=== PATIENT | male | born 1945 | race Caucasian/White ===

== ENCOUNTER 2019-03-30 12:29 | Observation (INO) | payer OTHER ==
[~2019-03-30] VITALS: Ht 165.1 cm; Wt 75.1 kg
[2019-03-30] MEDS ORDERED: SODIUM CHLORIDE 0.9% 1L BAG IV* STA (12:34)
[2019-03-30] MEDS ORDERED: CARV25TA79 PO (14:02)
--- NOTE | 2019-03-30 14:02 | ERD ---
ER Documentation Chief Complaint Chief Complaint near syncope this morning; no trauma or fall. HPI 73-year-old male presents to the emergency department after syncopal episode. Patient arrives asymptomatic without significant symptoms. History is mostly available from the daughter. According to the daughter, on a regular basis, patient checks his blood pressure prior to taking his blood pressure medicine. Today, he did not check his blood pressure and took all of his blood pressure medications. Of note, he is on 3 different medications for his blood pressure. After taking his medications, he felt lightheaded and passed out. He reported no chest pain, palpitations, shortness of breath. I have reviewed the head cook pre-hospital care. Pre-hospital vital signs were reviewed. Pre-hospital diagnostic tests were reviewed. Upon arrival, patient has no acute complaints. He reports no headache, focal weakness or numbness. ROS All systems reviewed and are negative except as per history of present illness. PMhx/Soc Medical and Surgical Hx: pt denies Surgical Hx History of Surgery: No Anesthesia Reaction: No Hx Neurological Disorder: No Hx Respiratory Disorders: No Hx Cardiac Disorders: Yes (htn) Hx Psychiatric Problems: No Hx Miscellaneous Medical Probl: No Hx Alcohol Use: No Hx Substance Use: No Hx Tobacco Use: No Smoking Status: Never smoker Physical Exam Vitals Vital Signs Date Temp Pulse Resp B/P (MAP) Pulse Ox O2 O2 Flow FiO2 Time Delivery Rate 03/30/19 Nasal 2 13:09 Cannula 03/30/19 97.5 70 18 92/65 (74) 97 13:07 Physical Exam GENERAL: The patient is well developed and appropriate for usual state of health in no apparent distress HEENT: Pupils equal, round, and reactive to light. EOMI. There is no scleral icterus. NECK: C-spine is soft and supple, there is no meningismus. There is no cervical lymphadenopathy. LUNGS: Clear to auscultation bilaterally. There are no rales, wheezes or rhonchi. HEART: Regular rate and rhythm, no murmurs, clicks, rubs or gallops. ABDOMEN: Soft, non-tender, non-distended. There are bowel sounds in all four quadrants. No rebound or guarding. EXTREMITIES: There is no peripheral cyanosis or edema. No focal swelling or erythema. NEURO: The patient moves all four extremities with 5/5 strength. Cranial nerves II - XII are intact. Normal gait. Alert and oriented SKIN: There is no apparent rash or petechiae. HEME/LYMPHATIC: There is no evidence of excessive bruising or lymphedema. PSYCHIATRIC: The patient does not appear anxious or depressed. Result Diagram: 03/30/19 1247 03/30/19 1247 Results 24 hrs Laboratory Tests Test 03/30/19 12:47 White Blood Count 9.7 10^3/ul Red Blood Count 5.38 10^6/ul Hemoglobin 16.2 g/dl Hematocrit 47.9 % Mean Corpuscular Volume 89.0 fl Mean Corpuscular Hemoglobin 30.1 pg Mean Corpuscular Hemoglobin Concent 33.8 g/dl Red Cell Distribution Width 12.2 % Platelet Count 193 10^3/UL Mean Platelet Volume 11.2 fl Immature Granulocytes % 0.300 % Neutrophils % 68.6 % Lymphocytes % 21.8 % Monocytes % 7.5 % Eosinophils % 1.6 % Basophils % 0.2 % Nucleated Red Blood Cells % 0.0 /100WBC Immature Granulocytes # 0.030 10^3/ul Neutrophils # 6.6 10^3/ul Lymphocytes # 2.1 10^3/ul Monocytes # 0.7 10^3/ul Eosinophils # 0.2 10^3/ul Basophils # 0.0 10^3/ul Nucleated Red Blood Cells # 0.0 10^3/ul Sodium Level 139 mmol/L Potassium Level 4.5 mmol/L Chloride Level 108 mmol/L Carbon Dioxide Level 23 mmol/L Anion Gap 8 Blood Urea Nitrogen 19 mg/dl Creatinine 1.38 mg/dl Est Glomerular Filtrat Rate mL/min mL/min Glucose Level 231 mg/dl POC Venous Lactate 1.6 mmol/L Calcium Level 8.5 mg/dl Total Bilirubin 0.3 mg/dl Direct Bilirubin 0.00 mg/dl Indirect Bilirubin 0.3 mg/dl Aspartate Amino Transf (AST/SGOT) 21 IU/L Alanine Aminotransferase (ALT/SGPT) 30 IU/L Alkaline Phosphatase 88 IU/L Troponin I < 0.012 ng/ml Total Protein 6.6 g/dl Albumin 3.6 g/dl Globulin 3.00 g/dl Albumin/Globulin Ratio 1.20 Current Medications Medications Dose Sig/Jose F Start Time Status Last (Trade) Ordered Route PRN Stop Time Admin Dose Reason Admin Sodium 2,100 ml BOLUS OVER 2 03/30/19 DC Chloride HOURS STAT 12:34 (NS) IV* 03/30/19 12:35 Procedures/MDM Patient was taken to a room, seen and evaluated. Comfort measures were initiat ed. Diagnostic tests were ordered and reviewed. 3 LEAD RHYTHM STRIP: Normal sinus rhythm without ectopy EKG obtained from the paramedics: 12 lead EKG reviewed by myself: Normal Sinus Rhythm Normal A[place] and intervals No ST elevation, depression, or T wave inversion Impression: Normal EKG Twelve-lead EKG interpreted by myself obtained upon arrival: Rate/rhythm: Normal sinus rhythm no ectopy Axton/intervals: Normal Ischemia: No ST elevation, ST depression, T wave inversion Impression: Nonischemic EKG RADIOLOGY: Reviewed with the radiologist CONSULTATION: Dr. Merida was notified for admission REEVALUATION: 1400 Diagnostic tests were appreciated. Arrangements were made for admission for observation MEDICAL DECISION MAKIN-year-old male presents the emergency department after syncopal episode. The cause of his syncope seems to be related to his high blood pressure medications. With supportive care and normal saline, his blood pressure seems to be responding but he will require prolonged observation given the medications causing the hypotension. At this time patient shows no evidence of other significant ischemia, anemia or other high-risk causes of syncope. He will be admitted for observation at this time. Departure Diagnosis: Primary Impression: Syncope Additional Impression: Adverse drug event Condition: MARIZOL Rascon March 30, 2019 14:02
[2019-03-30] MEDS ORDERED: ASPI-817 PO (14:03)
[2019-03-30] MEDS ORDERED: BENA40TA56 PO (14:03)
[2019-03-30] MEDS ORDERED: HYDR-3672 PO (14:03)
[2019-03-30] MEDS ORDERED: ACETAMINOPHEN 325 MG TAB PO PRN (14:30)
[2019-03-30] MEDS ORDERED: ZOLPIDEM 5 MG TAB PO PRN (14:30)
--- NOTE | 2019-03-30 15:34 | HP ---
DATE OF ADMISSION: 03/30/2019 CHIEF COMPLAINT: Near syncope. HISTORY OF PRESENT ILLNESS: A 73-year-old male with history of hypertension, presented to the ER fol lowing a near-syncopal episode. The patient is on multiple antihypertensives. He took all of his me dications and experienced severe lightheadedness. The patient denies jim syncope. He denies any c hest pain. No focal weakness or numbness. Initial evaluation in the Emergency Room revealed systoli c blood pressure in the 90s. Patient received IV fluids with appropriate response. PAST MEDICAL HISTORY: Hypertension. MEDICATIONS: Prior to admission: 1. Lisinopril. 2. Colace. 3. Hydralazine. 4. Aspirin. SOCIAL HISTORY: Patient lives at home. PHYSICAL EXAMINATION: GENERAL: Well-developed, well-nourished male who is in no apparent distress. VITAL SIGNS: Stable, afebrile. HEENT: Extraocular muscles intact. Pupils equal and reactive to light bilaterally. Sclera anicteri c. Oropharynx clear and moist. Neck: Supple, no JVD, no carotid bruits. LUNGS: Clear to auscultation bilaterally. CARDIAC: Regular rate and rhythm. No murmurs or gallops. ABDOMEN: Soft, nontender, nondistended. Normoactive bowel sounds. EXTREMITIES: No clubbing, cyanosis or edema. NEUROLOGIC: Cranial nerves 2-12 are intact. Motor and sensory are intact. Coordination normal. ASSESSMENT: A 73-year-old male with: 1. Near syncope due to hypotension. 2. Hypotension due to multiple antihypertensives. PLAN: 1. Place in tele observation. 2. Fluid hydration. 3. Hold all antihypertensives. Dictated By: ELAYNE ECHOLS/MANUEL Conf#: [id number] DID#: [id number]
[2019-03-30 20:42] VITALS: PULSE 76
[2019-03-30 20:45] VITALS: BP 156/84; PULSE 73; RESP 18
[2019-03-30 21:20] VITALS: Ht 165.1 cm; Wt 75.1 kg
[2019-03-30] MEDS: SOD CHLORIDE 0.9% 1,000 ML IV SCH (22:42)
[2019-03-31] VITALS (7 sets, daily range): BP systolic 109–159; BP diastolic 56–87; PULSE 76–90; RESP 17–18
[2019-03-31] MEDS: SOD CHLORIDE 0.9% 1,000 ML IV SCH (03:50)
[2019-03-31] MEDS ORDERED: BENAZEPRIL 40 MG TAB PO SCH (09:00)
[2019-03-31] MEDS ORDERED: ASPIRIN (EC) 81 MG TAB PO SCH (09:00)
--- NOTE | 2019-03-31 11:30 | PN ---
Date/Time of Note Date/Time of Note DATE: 03/31/19 TIME: 11:28 Assessment/Plan VTE Prophylaxis Risk score (from Ns)>0 risk: 2 [place] [facility] [place] contraindicated: low risk/ambulating Pharmacological prophylaxis: LMWH Lines/Catheters IV [facility]from [facility] Saline Lock Assessment/Plan Assessment/Plan 1. near syncope/syncope related to medication induced hypotension, bp meds restarted last night vitals now stable, increase activity,plan d/c home Result Diagram: 03/31/19 0505 03/31/19 0505 Results 24hrs Laboratory Tests Test 03/30/19 12:47 03/30/19 17:00 03/30/19 19:48 03/31/19 05:05 White Blood Count 9.7 8.7 Red Blood Count 5.38 4.96 Hemoglobin 16.2 14.9 Hematocrit 47.9 44.2 Mean Corpuscular 89.0 89.1 Volume Mean Corpuscular 30.1 30.0 Hemoglobin Mean Corpuscular 33.8 33.7 Hemoglobin Concen t Red Cell 12.2 12.4 Distribution Width Platelet Count 193 160 Mean Platelet 11.2 H 11.4 H Volume Immature 0.300 0.200 Granulocytes % Neutrophils % 68.6 64.5 Lymphocytes % 21.8 26.4 Monocytes % 7.5 6.2 Eosinophils % 1.6 2.2 Basophils % 0.2 0.5 Nucleated Red 0.0 0.0 Blood Cells % Immature 0.030 0.020 Granulocytes # Neutrophils # 6.6 5.6 Lymphocytes # 2.1 2.3 Monocytes # 0.7 0.5 Eosinophils # 0.2 0.2 Basophils # 0.0 0.0 Nucleated Red 0.0 0.0 Blood Cells # Sodium Level 139 143 Potassium Level 4.5 4.1 Chloride Level 108 111 H Carbon Dioxide 23 24 Level Anion Gap 8 8 Blood Urea 19 15 Nitrogen Creatinine 1.38 H 0.93 Est Glomerular Filtrat Rate mL/min Glucose Level 231 H 96 # POC Venous 1.6 Lactate Calcium Level 8.5 8.4 Total Bilirubin 0.3 Direct Bilirubin 0.00 Indirect 0.3 Bilirubin Aspartate Amino 21 Transf (AST/SGOT) Alanine 30 Aminotransferase (ALT/SGPT) Alkaline 88 Phosphatase Troponin I < 0.012 Total Protein 6.6 Albumin 3.6 Globulin 3.00 Albumin/Globulin 1.20 Ratio Lactic Acid Level 1.2 Urine Color YELLOW Urine Clarity SLIGHTLY CLOUDY A Urine pH 5.0 Urine Specific 1.014 [place] Urine Ketones NEGATIVE Urine Nitrite NEGATIVE Urine Bilirubin NEGATIVE Urine NEGATIVE Urobilinogen Urine Leukocyte NEGATIVE Esterase Urine Microscopic 0 RBC Urine Microscopic 1 WBC Urine Hemoglobin NEGATIVE Urine Glucose NEGATIVE Urine Total NEGATIVE Protein Subjective 24 Hr Interval Summary Free Text/Dictation no complaints eating ok ambulatng to toilet feels better Exam/Review of Systems Exam Vitals Vital Signs Date Temp Pulse Resp B/P (MAP) Pulse Ox O2 O2 Flow FiO2 Time Delivery Rate 03/31/19 90 08:00 03/31/19 97.9 18 159/87 95 07:23 (111) 03/31/19 Room Air 03:39 03/30/19 2 13:09 Intake and Output 03/30/19 03/30/19 03/31/19 1515:00 23:00 07:00 IntakeIntake Total 350 ml OutputOutput Total 250 ml BalanceBalance 100 ml Exam nad, ctab, rrr Results Results 24hrs Laboratory Tests Test 03/30/19 12:47 03/30/19 17:00 03/30/19 19:48 03/31/19 05:05 White Blood Count 9.7 8.7 Red Blood Count 5.38 4.96 Hemoglobin 16.2 14.9 Hematocrit 47.9 44.2 Mean Corpuscular 89.0 89.1 Volume Mean Corpuscular 30.1 30.0 Hemoglobin Mean Corpuscular 33.8 33.7 Hemoglobin Concen t Red Cell 12.2 12.4 Distribution Width Platelet Count 193 160 Mean Platelet 11.2 H 11.4 H Volume Immature 0.300 0.200 Granulocytes % Neutrophils % 68.6 64.5 Lymphocytes % 21.8 26.4 Monocytes % 7.5 6.2 Eosinophils % 1.6 2.2 Basophils % 0.2 0.5 Nucleated Red 0.0 0.0 Blood Cells % Immature 0.030 0.020 Granulocytes # Neutrophils # 6.6 5.6 Lymphocytes # 2.1 2.3 Monocytes # 0.7 0.5 Eosinophils # 0.2 0.2 Basophils # 0.0 0.0 Nucleated Red 0.0 0.0 Blood Cells # Sodium Level 139 143 Potassium Level 4.5 4.1 Chloride Level 108 111 H Carbon Dioxide 23 24 Level Anion Gap 8 8 Blood Urea 19 15 Nitrogen Creatinine 1.38 H 0.93 Est Glomerular Filtrat Rate mL/min Glucose Level 231 H 96 # POC Venous 1.6 Lactate Calcium Level 8.5 8.4 Total Bilirubin 0.3 Direct Bilirubin 0.00 Indirect 0.3 Bilirubin Aspartate Amino 21 Transf (AST/SGOT) Alanine 30 Aminotransferase (ALT/SGPT) Alkaline 88 Phosphatase Troponin I < 0.012 Total Protein 6.6 Albumin 3.6 Globulin 3.00 Albumin/Globulin 1.20 Ratio Lactic Acid Level 1.2 Urine Color YELLOW Urine Clarity SLIGHTLY CLOUDY A Urine pH 5.0 Urine Specific 1.014 [place] Urine Ketones NEGATIVE Urine Nitrite NEGATIVE Urine Bilirubin NEGATIVE Urine NEGATIVE Urobilinogen Urine Leukocyte NEGATIVE Esterase Urine Microscopic 0 RBC Urine Microscopic 1 WBC Urine Hemoglobin NEGATIVE Urine Glucose NEGATIVE Urine Total NEGATIVE Protein Medications Medication Current Medications Aspirin (Halfprin) 81 mg DAILY PO Last administered on 03/31/19 08:30; Admin Dose 81 MG; Start 03/31/19 at 09:00 Sodium Chloride 1,000 ml @ 75 mls/hr [id number] IV Last administered on 03/30/19 22:42; Admin Dose 75 MLS/HR; Start 03/30/19 at 14:30 Acetaminophen (Tylenol Tab) 650 mg Q4 PRN PO pain; Start 03/30/19 at 14:30 Zolpidem Tartrate (Ambien) 5 mg HS MAY REPEAT X 1 PRN PO INSOMNIA; Start 03/30/19 at 14:30 Carvedilol (Coreg) 25 mg BID PO Last administered on 03/31/19 08:31; Admin Dose 25 MG; Start 03/30/19 at 22:00 Benazepril HCl (Lotensin) 40 mg DAILY PO Last administered on 03/31/19 08:31; Admin Dose 40 MG; Start 03/31/19 at 09:00 Hydralazine HCl (Apresoline) 50 mg BID PO Last administered on 03/31/19 08:31; Admin Dose 50 MG; Start 03/30/19 at 22:00 URMILA KUMAR MD March 31, 2019 11:30
--- NOTE | 2019-03-31 11:36 | PDOCDIS ---
Discharge Instructions DIAGNOSIS Discharge Diagnosis 1. hypotension related to medications adn dehydration 2. hypertension CONDITION [id number] Patient Condition: [id number] Good HOME CARE INSTRUCTIONS: [id number] Diet Instructions: [id number] Reduced Sodium ACTIVITY: [id number] Activity Restrictions: [id number] Slowly Increase Activity FOLLOW UP/APPOINTMENTS Follow-up Plan 1. pcp in 3-5 days URMILA KUMAR MD March 31, 2019 11:36
--- NOTE | 2019-03-31 11:38 | DS ---
Date/Time of Note Date/Time of Note DATE: 03/31/19 TIME: 11:36 Discharge Summary Admission/Discharge Info Admit Date/Time March 30, 2019 at 14:04 Discharge Date/Time Discharge Diagnosis 1. hypotension related to medications adn dehydration 2. hypertension Patient Condition: Good Hospital Course patient admitted with syncope/near syncope related to hypotension. This is secondary to dehydration and medications. Blood pressure meds are held and hydration given. The blood pressure increasees and the meds are restarted. Patient tolerated well and is discharge to home. Medication titrationn to be d one with primary [facility] Meds Reported Medications Benazepril Hcl* (Benazepril Hcl*) 40 Mg Tablet, 40 MG PO DAILY, #30 TAB 03/30/19 Aspirin* (Aspirin* EC) 81 Mg Tablet.dr, 81 MG PO DAILY, TAB 03/30/19 Hydralazine Hcl* (Hydralazine Hcl*) 50 Mg Tab, 50 MG PO BID, #60 TAB 03/30/19 Carvedilol* (Carvedilol*) 25 Mg Tablet, 25 MG PO BID, #60 TAB 03/30/19 Follow-up Plan 1. pcp in 3-5 days Primary Care Provider Nazia Jasso MD Time spent on discharge: > 30 minutes Pending Labs Laboratory Tests Test 03/30/19 12:47 03/30/19 17:00 03/30/19 19:48 03/31/19 05:05 White Blood 9.7 8.7 Count 10^3/ul (4.8-10 10^3/ul (4.8-1 .8) 0.8) Red Blood 5.38 4.96 Count 10^6/ul (4.70-6 10^6/ul (4.70- .10) 6.10) Hemoglobin 16.2 14.9 g/dl (14.0-18.0 g/dl (14.0-18. ) 0) Hematocrit 47.9 44.2 % (42.0-52.0) % (42.0-52.0) Mean 89.0 89.1 Corpuscular fl (82.0-101.0) fl (82.0-101.0 Volume ) Mean 30.1 30.0 Corpuscular pg (29.0-33.0) pg (29.0-33.0) Hemoglobin Mean 33.8 33.7 Corpuscular g/dl (32.0-37.0 g/dl (32.0-37. Hemoglobin Conc ) 0) ent Red Cell 12.2 12.4 Distribution % (11.5-14.5) % (11.5-14.5) Width Platelet Count 193 160 10^3/UL (140-41 10^3/UL (140-4 5) 15) Mean Platelet 11.2 11.4 Volume fl (7.4-10.4) fl (7.4-10.4) Immature 0.300 0.200 Granulocytes % % (0.001-0.429) % (0.001-0.429 ) Neutrophils % 68.6 64.5 % (39.0-77.0) % (39.0-77.0) Lymphocytes % 21.8 26.4 % (15.0-51.0) % (15.0-51.0) Monocytes % 7.5 6.2 % (0.0-11.0) % (0.0-11.0) Eosinophils % 1.6 % (0.0-7.0) 2.2 % (0.0-7.0) Basophils % 0.2 % (0.0-2.0) 0.5 % (0.0-2.0) Nucleated Red 0.0 0.0 Blood Cells % /100WBC (0.0-0. /100WBC (0.0-0 0) .0) Immature 0.030 0.020 Granulocytes # 10^3/ul (0.0-0. 10^3/ul (0.0-0 031) .031) Neutrophils # 6.6 5.6 10^3/ul (1.6-7. 10^3/ul (1.6-7 5) .5) Lymphocytes # 2.1 2.3 10^3/ul (0.8-2. 10^3/ul (0.8-2 9) .9) Monocytes # 0.7 0.5 10^3/ul (0.3-0. 10^3/ul (0.3-0 9) .9) Eosinophils # 0.2 0.2 10^3/ul (0.0-0. 10^3/ul (0.0-0 5) .5) Basophils # 0.0 0.0 10^3/ul (0.0-0. 10^3/ul (0.0-0 1) .1) Nucleated Red 0.0 0.0 Blood Cells # 10^3/ul (0.0-0. 10^3/ul (0.0-0 0) .0) Sodium Level 139 143 mmol/L (135-144 mmol/L (135-14 ) 4) Potassium 4.5 4.1 Level mmol/L (3.5-5.1 mmol/L (3.5-5. ) 1) Chloride Level 108 111 mmol/L (97-110) mmol/L (97-110 ) Carbon Dioxide 23 24 Level mmol/L (21-31) mmol/L (21-31) Anion Gap 8 (5-13) 8 (5-13) Blood Urea 19 mg/dl (7-20) 15 Nitrogen mg/dl (7-20) Creatinine 1.38 0.93 mg/dl (0.61-1.2 mg/dl (0.61-1. 4) 24) Est Glomerular mL/min (>60) mL/min (>60) Filtrat Rate mL/min Glucose Level 231 96 mg/dl (70-220) mg/dl (70-220) POC Venous 1.6 Lactate mmol/L (0.5-2.0 ) Calcium Level 8.5 8.4 mg/dl (8.4-10.2 mg/dl (8.4-10. ) 2) Total 0.3 Bilirubin mg/dl (0.2-1.3) Direct 0.00 Bilirubin mg/dl (0.00-0.2 0) Indirect 0.3 Bilirubin mg/dl (0-1.1) Aspartate Amino 21 IU/L (15-46) Transf (AST/SGO T) Alanine 30 IU/L (13-69) Aminotransferas e (ALT/SGPT) Alkaline 88 Phosphatase IU/L (42-121) Troponin I < 0.012 ng/ml (0.000-0. 120) Total Protein 6.6 g/dl (6.1-8.1) Albumin 3.6 g/dl (3.3-4.9) Globulin 3.00 g/dl (1.3-3.2) Albumin/Globuli 1.20 n Ratio Lactic Acid 1.2 Level mmol/L (0.5-2. 0) Urine Color YELLOW (YELLOW ) Urine Clarity SLIGHTLY CLOUD Y (CLEAR) Urine pH 5.0 (5.0-9.0) Urine Specific 1.014 (1.003-1 [place] .030) Urine Ketones NEGATIVE mg/dL (NEGATIV E) Urine Nitrite NEGATIVE mg/dL (NEGATIV E) Urine NEGATIVE Bilirubin mg/dL (NEGATIV E) Urine NEGATIVE Urobilinogen mg/dL (NEGATIV E) Urine Leukocyte NEGATIVE [place]/u Esterase l Urine 0 /HPF (0-5) Microscopic RBC Urine 1 /HPF (0-5) Microscopic WBC Urine NEGATIVE Hemoglobin mg/dL (NEGATIV E) Urine Glucose NEGATIVE mg/dL (NEGATIV E) Urine Total NEGATIVE Protein mg/dl (NEGATIV E) URMILA KUMAR MD March 31, 2019 11:38
== END 2019-03-31 12:46 | disposition home or self-care (01) ==
LOC: E/R 12:29 → 6WM 14:04
PROVIDERS: ADMIT Internal Medicine; ATTEND Internal Medicine
DX: I95.2 Hypotension due to drugs (principal); E86.0 Dehydration; I10 Essential (primary) hypertension; Z79.82 Long term (current) use of aspirin
CPT/HCPCS: 71045; 80048; 80053; 81001; 83605; 84484; 85025; 87040; 87086; G0378; J7030; 36415; 81003; 93005